=== PATIENT | female | born 1960 | race African-American/Black ===

== ENCOUNTER 2019-05-14 14:10 | Inpatient (IN) | payer MEDICAID ==
[~2019-05-14] VITALS: Ht 152.4 cm; Wt 73.9 kg
[2019-05-14 15:10] LABS: BASOPHILS % 0.8 % (0.0-2.0); HEMATOCRIT. 39.1 % (36.0-48.0); HEMOGLOBIN. 13.1 g/dL (12.0-16.0); LYMPHOCYTES % 19.2 % (20.0-50.0); MEAN CORPUSCULAR HEMOGLOBIN 31.7 pg (28.0-32.0); MEAN CORPUSCULAR VOLUME 94.7 fL (81.0-99.0); MEAN PLATELET VOLUME 7.9 fl (7.4-10.4); MONOCYTES % 7.7 % (2.0-8.0); NEUTROPHILS % 67.3 % (40.0-76.0); PLATELET 235 x1000/uL (130-400); RED BLOOD CELL COUNT 4.13 mill/uL (4.2-5.4); RED CELL DISTRIBUTION WIDTH 13.5 % (11.6-14.6)
[2019-05-14 15:12] LABS: CHLORIDE 111 mEq/L (98-107)
[2019-05-14 15:16] LABS: ETHANOL BLOOD < 10 mg/dL
[2019-05-14 15:17] LABS: PROTHROMBIN TIME 10.6 sec (9.6-11.0)
[2019-05-14 15:20] LABS: LDL CHOLESTEROL 127 mg/dL (5-100)
[2019-05-14 17:16] LABS: CLARITY URINE CLEAR (CLEAR); COLOR URINE YELLOW (YELLOW); KETONES URINE NEGATIVE (NEGATIVE); LEUKOCYTE ESTERASE URINE NEGATIVE (NEGATIVE); NITRITE URINE NEGATIVE (NEGATIVE); OCCULT BLOOD URINE NEGATIVE (NEGATIVE); PH URINE 5.5 (4.5-8.0); PROTEIN URINE NEGATIVE (NEGATIVE); SPECIFIC GRAVITY URINE 1.025 (1.005-1.030); UROBILINOGEN URINE 0.2 E.U./dL (0.2-1.0)
[2019-05-14 17:56] LABS: *AMPHETAMINES SCREEN URINE NEGATIVE (NEGATIVE); *BARBITURATES SCREEN URINE NEGATIVE (NEGATIVE); *BENZODIAZEPINES SCREEN URINE NEGATIVE (NEGATIVE); *COCAINE SCREEN URINE PRESUMTIVE POSITIVE (NEGATIVE)
[2019-05-14 17:57] LABS: CANNABINOID URINE SCREEN NEGATIVE (NEGATIVE); METHADONE URINE SCREEN NEGATIVE (NEGATIVE); OPIATES URINE SCREEN NEGATIVE (NEGATIVE); PHENCYCLIDINE URINE SCREEN NEGATIVE (NEGATIVE)
[2019-05-14] MEDS ORDERED: IPRATROPIUM/ALBUTEROL 0.5-3(2.5)MG/3ML NEB HHN PRN (18:00)
[2019-05-14] MEDS ORDERED: ONDANSETRON HCL 4MG/2ML INJ IV PRN (18:00)
[2019-05-14] MEDS ORDERED: DIPHENHYDRAMINE 50MG/ML VIAL IV PRN (18:00)
[2019-05-14] MEDS ORDERED: ACETAMINOPHEN 325MG TABLET PO PRN (18:00)
[2019-05-14] MEDS: CLONIDINE 0.1MG TABLET PO PRN (20:13)
[2019-05-14] MEDS ORDERED: IOHEXOL-350 100 ML BOTTLE ONE (22:28)
[2019-05-15] MEDS: CLONIDINE 0.1MG TABLET PO PRN (00:17)
[2019-05-15 00:19] VITALS: BP 190/119
[2019-05-15 04:00] VITALS: BP 139/89
[2019-05-15 06:35] LABS: BASOPHILS % 0.5 % (0.0-2.0); EOSINOPHILS % 4.1 % (0.0-5.0); HEMATOCRIT. 38.5 % (36.0-48.0); LYMPHOCYTES % 16.7 % (20.0-50.0); MEAN CORPUSCULAR HEMOGLOBIN 31.6 pg (28.0-32.0); MEAN CORPUSCULAR VOLUME 93.9 fL (81.0-99.0); MEAN PLATELET VOLUME 8.2 fl (7.4-10.4); MONOCYTES % 6.3 % (2.0-8.0); NEUTROPHILS % 72.4 % (40.0-76.0); PLATELET 234 x1000/uL (130-400); RED CELL DISTRIBUTION WIDTH 13.4 % (11.6-14.6)
[2019-05-15 07:11] LABS: CHLORIDE 109 mEq/L (98-107)
[2019-05-15 07:21] LABS: LDL CHOLESTEROL 123 mg/dL (5-100)
[2019-05-15 07:22] LABS: HDL CHOLESTEROL 55 mg/dL (40-59)
[2019-05-15 08:00] VITALS: BP 145/93
[2019-05-15] MEDS: ENOXAPARIN 40MG/0.4ML SYR SUBCUT SCH (09:50)
[2019-05-15 12:30] VITALS: BP 138/85
[2019-05-15 16:00] VITALS: BP 146/99
[2019-05-15 20:00] VITALS: BP 123/91
[2019-05-15] MEDS ORDERED: ATORVASTATIN CALCIUM 10MG TABLET PO SCH (21:00)
[2019-05-16] VITALS: BP 159/117
[2019-05-16] MEDS: CLONIDINE 0.1MG TABLET PO PRN (00:08)
[2019-05-16 04:11] VITALS: BP 150/89
[2019-05-16 08:00] VITALS: BP 149/95
[2019-05-16] MEDS: ENOXAPARIN 40MG/0.4ML SYR SUBCUT SCH (09:26)
[2019-05-16 12:00] VITALS: BP 140/99
[2019-05-16 15:30] VITALS: BP 132/92
[2019-05-16] MEDS ORDERED: ATOR10TA PO ×2 (16:19→16:43)
[2019-05-16] MEDS ORDERED: ASPI-1158 MT (16:22)
[2019-05-16 16:30] VITALS: BP 132/92
== END 2019-05-16 20:25 | disposition home or self-care (01) | DRG 58 ==
LOC: ER 14:17 → 6WST 17:13 → EDBEDREQ 17:16 → EDBEDREQSVC 17:16 → ENRESERV 20:23
PROVIDERS: ADMIT Internal Medicine; ATTEND Internal Medicine
DX: R29.810 Facial weakness (principal); N17.9 Acute kidney failure, unspecified; I11.0 Hypertensive heart disease with heart failure; I50.9 Heart failure, unspecified; F14.20 Cocaine dependence, uncomplicated; I69.354 Hemiplegia and hemiparesis following cerebral infarction affecting left non-dominant side; E78.5 Hyperlipidemia, unspecified; F17.210 Nicotine dependence, cigarettes, uncomplicated; F31.9 Bipolar disorder, unspecified; D35.2 Benign neoplasm of pituitary gland; R47.81 Slurred speech; Z88.8 Allergy status to other drugs, medicaments and biological substances; Z71.51 Drug abuse counseling and surveillance of drug abuser
CPT/HCPCS: 36415; 70551; 71045; 80053; 80061; 80305; 80320; 81003; 82962; 83721; 83735; 83880; 84100; 84443; 84484; 85025; 93005; 93880; 93970; 97162; 97535; 99291; J1650; Q9967; G0480